=== PATIENT | female | born 1955 | race Caucasian/White ===

== ENCOUNTER → 2019-08-07 09:58 | Outpatient (BNVA) | payer MEDICARE, BC, SELFPAY | PROVIDERS: Family Provider Family Medicine; PCP Family Medicine; Referring Provider Family Medicine; Visit Provider Otolaryngology | DX: H93.91 Unspecified disorder of right ear (principal); H69.81 Other specified disorders of Eustachian tube, right ear; H65.21 Chronic serous otitis media, right ear; H90.11 Conductive hearing loss, unilateral, right ear, with unrestricted hearing on the contralateral side | CPT/HCPCS: 99214 ==

== ENCOUNTER 2019-08-29 06:21 | Day surgery (SDC) | payer MEDICARE, BC, SELFPAY ==
[2019-08-28 14:47] VITALS: BMI 31.8
[2019-08-29 06:37] VITALS: BP 120/68; PULSE 91; RESP 18; TEMP 36.6; O2SAT 97
[2019-08-29] MEDS: sodium chloride 0.9% 1,000 ML 30 ML IV (06:45)
--- NOTE | 2019-08-29 06:46 | W.PM.OPSUD ---
Surgery/Procedure H&P Update DATE OF PROCEDURE: August 29, 2019 DATE H&P PERFORMED: 08/07/19 H&P UPDATE INFORMATION: I have reviewed H&P completed within last 30 days and No changes to prior documentation PLANNED PROCEDURE: Operation Date: 08/29/19 07:50 Proposed Procedures p RIGHT MYRINGOTOMY REQUIRING TUBE INSERTION ([id number])H69.81(Right) - Anshul Dietz MD
--- NOTE | 2019-08-29 06:46 | PM.OP ---
Operative Report Date of procedure: August 29, 2019 Pre-op Diagnosis: Eustachian tube dysfunction Post-op diagnosis: same Procedure Done: Right myringotomy and tube, binocular microscope Pathology: none sent Anesthesia: General Condition: stable Disposition: PACU Brief History: Phill is a 64-year-old female with right eustachian tube dysfunction she is failed medical management and remains symptomatic. I discussed the goals risks and alternatives and informed consent was obtained. Procedure: The patient was taken to the operating room and under satisfactory general mask anesthesia the right ear was examined using the binocular microscope. Cerumen was removed from the external auditory canal. A radial incision was made in the anterior inferior quadrant of the right tympanic membrane and a #1 Paparella tube was placed. The patient was taken to the recovery room where they were observed. During the observation period postoperative care instructions and counseling including detailed written and verbal instructions given to the caregiver. Once the patient met discharge criteria and once all parties verbalized understanding of all instructions the patient was discharged in satisfactory and stable condition.
[2019-08-29 07:03] LABS: Glucose Point of Care 125 mg/dL (70-110)
--- NOTE | 2019-08-29 07:17 | ANES.PREANE2 ---
Pre-Anesthetic Assessment Pre-Anesthetic Assessment: Height/Weight: Height 1.57 m Weight 78.925 kg Temp Pulse Resp BP Pulse Ox 97.9 F 91 18 120/68 97 08/29/19 06:37 08/29/19 06:37 08/29/19 06:37 08/29/19 06:37 08/29/19 06:37 Preop Diagnosis: Chronic serous otitis media Proposed Procedure: Operation Date: 08/29/19 07:50 Proposed Procedures p RIGHT MYRINGOTOMY REQUIRING TUBE INSERTION ([id number])H69.81(Right) - Anshul Dietz MD Social: Social History: Tobacco (quit 1997) and No alcohol Exam: Pre-Anes Outpt Exam: alert, oriented x 3, clear to auscultation bilaterally and regular rate & rhythm Airway: Submandibular: WNL Cervical ROM: WNL MP: 2 History/ROS: No significant history except as noted Pulmonary: Pulmonary: Asthma and MOE CV/HEM: CV/HEM: Anemia : : None reported Hepatic: Hepatic: None reported GI: Comments: s/p fundal plication Musc/skel: Musc/skel: Fibromyalgia and OA/DJD Neuropsych: Neuropsych: Anxiety, Depression and Neuropathy (left arm) Anesthetic Plan: ASA status: 3 Anesthesia: Anesthesia Evaluation and General Risk of > 500 ml blood loss (7ml/kg in children): No PFSH Anesthesia PFSH: Medical History (Updated 08/29/19 @ 07:18 by Vimal Jason MD) Anemia Asthma Chronic serous otitis media Conductive hearing loss in right ear Depression Diabetes mellitus, type II Enrolled in chronic care management FH: cholecystectomy Fibromyalgia Gastroesophageal reflux MVP (mitral valve prolapse) Surgical History (Updated 08/29/19 @ 07:18 by Vimal Jason MD) H/O abdominal hysterectomy H/O shoulder surgery Status post laparoscopic Bessie fundoplication Social History Smoking and tobacco status: former smoker Quit status (tobacco): has quit using tobacco Year quit tobacco: 1997 Alcohol intake: current Alcohol intake frequency: few times a month Data Anesthesia Other Labs: Laboratory Results - last 48 hr 08/29/19 07:01 POC Glucose 125 Cardiac Studies: No Data to Display
[2019-08-29] MEDS: ofloxacin 0.3% otic 5 mL Btl 3 DROP EAR-RIGHT (07:33)
[2019-08-29 07:37] VITALS: BP 137/79; PULSE 79; RESP 18; TEMP 36.8; O2SAT 95
[2019-08-29 07:58] VITALS: BP 128/81; PULSE 94; RESP 18
== END 2019-08-29 08:08 | disposition home or self-care (01) ==
PROVIDERS: Family Provider Family Medicine; PCP Family Medicine; Visit Provider Otolaryngology
PROC: (CPT 69420; principal; 2019-08-29 07:50)
DX: H69.91 Unspecified Eustachian tube disorder, right ear (principal); Z87.891 Personal history of nicotine dependence; J45.909 Unspecified asthma, uncomplicated; M79.7 Fibromyalgia; M19.90 Unspecified osteoarthritis, unspecified site; E11.40 Type 2 diabetes mellitus with diabetic neuropathy, unspecified; K21.9 Gastro-esophageal reflux disease without esophagitis; Z79.84 Long term (current) use of oral hypoglycemic drugs; Z82.49 Family history of ischemic heart disease and other diseases of the circulatory system; Z83.3 Family history of diabetes mellitus
CPT/HCPCS: 69436; 12345; 36416; 82962; J2001; J2704; J7030

== ENCOUNTER → 2019-09-19 09:48 | Outpatient (BNVA) | payer MEDICARE, BC, SELFPAY | PROVIDERS: Family Provider Family Medicine; PCP Family Medicine; Visit Provider Otolaryngology | DX: H69.81 Other specified disorders of Eustachian tube, right ear (principal); H65.21 Chronic serous otitis media, right ear; H90.11 Conductive hearing loss, unilateral, right ear, with unrestricted hearing on the contralateral side | CPT/HCPCS: 99213; 99214 ==

== ENCOUNTER → 2019-10-03 10:04 | Outpatient (BNVA) | payer MEDICARE, BC, SELFPAY | PROVIDERS: Family Provider Family Medicine; PCP Family Medicine; Visit Provider Audiologist | DX: H90.11 Conductive hearing loss, unilateral, right ear, with unrestricted hearing on the contralateral side (principal) | CPT/HCPCS: 99213; 99214 ==

== ENCOUNTER → 2019-11-01 11:53 | Outpatient (BNVA) | payer MEDICARE, BC, SELFPAY | PROVIDERS: Family Provider Family Medicine; PCP Family Medicine; Visit Provider Family Medicine | DX: E11.9 Type 2 diabetes mellitus without complications (principal); E55.9 Vitamin D deficiency, unspecified; M79.7 Fibromyalgia; D50.8 Other iron deficiency anemias; D50.9 Iron deficiency anemia, unspecified | CPT/HCPCS: 80053; 80061; 82044; 82306; 82728; 83036; 83550; 85025 ==

== ENCOUNTER → 2020-05-15 08:17 | Outpatient (BNVA) | payer MEDICARE, BC, SELFPAY | PROVIDERS: Family Provider Family Medicine; PCP Family Medicine; Visit Provider Family Medicine | DX: E78.1 Pure hyperglyceridemia (principal); E11.9 Type 2 diabetes mellitus without complications; D50.8 Other iron deficiency anemias; D50.9 Iron deficiency anemia, unspecified; E55.9 Vitamin D deficiency, unspecified | CPT/HCPCS: 80053; 80061; 82043; 82306; 83036; 83540; 83550; 85025 ==

== ENCOUNTER → 2020-05-29 13:21 | Outpatient (BNVA) | payer MEDICARE, BC, SELFPAY | PROVIDERS: Family Provider Family Medicine; PCP Family Medicine; Visit Provider Family Medicine | DX: Z20.828 Contact with and (suspected) exposure to other viral communicable diseases (principal); F17.219 Nicotine dependence, cigarettes, with unspecified nicotine-induced disorders | CPT/HCPCS: 87635 ==

== ENCOUNTER 2020-06-15 14:56 | Outpatient (CLI) | payer MEDICARE, BC, SELFPAY ==
--- NOTE | 2020-06-15 15:02 | MR_ITS ---
WS: [id number] MRA ANGIOGRAPHY [place] HISTORY: OTALGIA RIGHT EAR;PULSATILE TINNITUS RIGHT EAR COMPARISON: None available. TECHNIQUE: 3-D MR angiography is performed of the [place]. All images are reviewed including source images. Distal vertebral and basilar arteries are intact with no significant stenosis or plaque. Posterior ce rebral arteries are normal course and caliber. Dominant LEFT posterior communicating artery. The RIGH T is hypoplastic or absent. Intracranial portion of the internal carotid arteries are normal course and caliber. No significant a therosclerosis, stenosis or aneurysm identified. Middle and anterior cerebral arteries are both paten t with no significant disease. Anterior communicating artery is also normal. MR/MR angio head wo con [id number] IMPRESSION: Normal MRA [place]. No [place] aneurysm.
--- NOTE | 2020-06-15 15:02 | MR_ITS ---
WS: [id number] MR VENOGRAPHY HEAD 3-D noncontrast imaging performed through the cerebral veins. All imaging is reviewed. HISTORY: OTALGIA RIGHT Ear; pulsatile TINNITUS RIGHT EAR COMPARISON: None available. Excellent demonstration of the dural venous sinuses and cerebral veins. There are no filling defects to suggest acute or chronic thrombus. No persistent filling defects. There are defects related to marleni w artifacts extending into the jugular veins. There is a prominent Pacchionian granulation over the s uperior sagittal sinus at the vertex which is normal. Flow artifact in the jugular veins. Superior sa gittal sinus, straight sinus and transverse sinuses are all patent with no significant thrombus. MR/[place] [id number] IMPRESSION: Normal MR venogram cerebral veins.
== END 2020-06-15 14:57 | disposition home or self-care (01) ==
LOC: RADSHAW 14:59
PROVIDERS: Family Provider Family Medicine; PCP Family Medicine; Visit Provider Specialist
DX: H92.01 Otalgia, right ear (principal); H93.A1 Pulsatile tinnitus, right ear
CPT/HCPCS: 70544

== ENCOUNTER → 2020-07-07 10:16 | Outpatient (BNVA) | payer MEDICARE, BC, SELFPAY | PROVIDERS: Family Provider Family Medicine; PCP Family Medicine; Visit Provider Nurse Practitioner Family | DX: M25.562 Pain in left knee (principal) | CPT/HCPCS: 73562 ==

== ENCOUNTER 2020-07-22 14:50 | Outpatient (CLI) | payer MEDICARE, BC, SELFPAY ==
--- NOTE | 2020-07-22 15:15 | MR_ITS ---
WS: [id number] MRI LEFT KNEE NONCONTRAST TECHNIQUE: Axial PD, coronal PD fat sat, coronal PD, sagittal PD, and sagittal PD fat-sat images obta ined. CLINICAL INFORMATION: left knee pain COMPARISON: None. FINDINGS: Distal quadriceps and patella tendons are intact. Normal ACL and PCL. Normal medial and lateral menis cus. No acute appearing meniscal tears. Chronic intrasubstance signal abnormality involving the media l and lateral meniscus. Mild chondromalacia patella. Normal medial and lateral patellar retinaculum. Normal popliteal fossa. Moderate joint space narrowing involving the medial and lateral joint compartments with chondromalaci a. Subcutaneous edema involving the lateral subcutaneous soft tissues. Medial and lateral collateral ligaments appear intact. Normal bone marrow signal in the distal femoral condyles and tibial plateau. MR/MR knee LT wo con* [id number] IMPRESSION: 1. Normal anterior and posterior cruciate ligaments. 2. No acute appearing meniscal tears. 3. Subcutaneous edema involving the lateral knee soft tissues consistent with contusion. Medial and lateral collateral ligaments appear intact. 4. Moderate degenerative narrowing involving the medial and lateral joint comp artments with chondromalacia. 5. Mild chondromalacia patella.
== END 2020-07-22 14:51 | disposition home or self-care (01) ==
LOC: RADSHAW 14:56
PROVIDERS: Family Provider Family Medicine; PCP Family Medicine; Visit Provider Family Medicine
DX: M22.42 Chondromalacia patellae, left knee (principal); R60.0 Localized edema
CPT/HCPCS: 73721

== ENCOUNTER 2020-07-28 08:28 | Outpatient (CLI) | payer MEDICARE, BC, SELFPAY ==
--- NOTE | 2020-07-28 08:33 | USCV_ITS ---
Phill Reina Age: 65 Gender: F : 1955 Exam Date: 07/28/2020 08:59 Ordering Phys: Patricio Vogt MD Technologist: Slick Samaniego Exam Location: [facility] [place]_ Indication: PULSATILE TENNITUS RT EAR Risk Factors: Previous Vascular Surgery: Right Brachial BP: / Left Brachial BP: / Right Left Velocity (cm/s) Spectral Plaque Velocity (cm/s) Spectral Plaque Syst/Diast Broadening Syst/Diast Broadening 83.10/ 13.20 Prox CCA 121.30/ 26.50 80.80/ 19.40 Mid CCA 99.20 / 34.20 83.10/ 22.50 Distal CCA 106.90/ 26.50 79.40/ 18.70 Prox ICA 87.20 / 20.70 94.80/ 27.30 Mid ICA 89.90 / 31.50 93.10/ 35.00 Distal ICA 113.20/ 35.90 111.40 ECA 164.30 1.17 ICA/CCA 1.14 Antegrade Vertebral Antegrade 55.50/ 17.10 cm/s 55.20/ 16.30 cm/s Tri Subclavian Tri 91.40 92.70 FINDINGS Comparison: none available. No significant elevation of systolic or diastolic velocities. Waveforms are normal. No significant amount of calcified plaque or intimal thickening identified. CONCLUSIONS Normal carotid doppler ultrasound. Dr. Katherine Correa DO (Electronically Signed) Final Date: 28 July 2020 09:18 S
== END 2020-07-28 08:29 | disposition home or self-care (01) ==
LOC: US 08:30
PROVIDERS: PCP Family Medicine; Visit Provider Specialist
DX: H93.A1 Pulsatile tinnitus, right ear (principal)
CPT/HCPCS: 93880

== ENCOUNTER → 2020-11-04 15:21 | Outpatient (BNVA) | payer MEDICARE, BC, SELFPAY | PROVIDERS: PCP Family Medicine; Visit Provider Specialist | DX: M25.562 Pain in left knee (principal) | CPT/HCPCS: 73560; 73565 ==

== ENCOUNTER 2020-11-09 06:00 | Outpatient (RCR) | payer MEDICARE, BC, SELFPAY | END 2020-12-07 23:59 | disposition home or self-care (01) | LOC: MPT 06:00 | PROVIDERS: PCP Family Medicine; Referring Provider Specialist; Visit Provider Specialist | DX: M25.562 Pain in left knee (principal) | CPT/HCPCS: 97110; 97161 ==

== ENCOUNTER → 2020-11-12 08:12 | Outpatient (BNVA) | payer MEDICARE, BC, SELFPAY | PROVIDERS: PCP Family Medicine; Visit Provider Family Medicine | DX: D50.8 Other iron deficiency anemias (principal); E11.9 Type 2 diabetes mellitus without complications; E78.1 Pure hyperglyceridemia; D50.9 Iron deficiency anemia, unspecified; F17.219 Nicotine dependence, cigarettes, with unspecified nicotine-induced disorders | CPT/HCPCS: 80053; 80061; 82728; 83036; 83550; 85025 ==

== ENCOUNTER 2021-05-13 14:27 | Outpatient (CLI) | payer MEDICARE, BC, SELFPAY ==
--- NOTE | 2021-05-13 14:43 | XR_ITS ---
WS: [id number] LEFT HIP HISTORY: left hip pain COMPARISON: None available. LEFT hip: No acute fracture or dislocation. No soft tissue abnormality. XR/XR hip LT 2-3V wo/w pel* [id number] IMPRESSION: 1. No hip fracture. 2. Normal LEFT hip.
--- NOTE | 2021-05-13 14:43 | XR_ITS ---
WS: [id number] LUMBAR SPINE: 3 VIEWS TECHNIQUE: AP, lateral and L5-S1 spot. HISTORY: chronic low back pain COMPARISON: 03/20/2017 L4 anterolisthesis by 4 mm. No fractures. Pedicles are all identified. Mild facet joint arthritis at L4-5 and L5-S1. SI joints are symmetric bilaterally. No soft tissue abnormalities. Prior cholecystectomy. Scattered plaque within the visualized aorta. XR/XR lumbar spine 2-3V* [id number] IMPRESSION: 1. Mild facet joint arthritis L4-5 and L5-S1 has mildly progressed since 2016. 2. No fractures. 3. L4 anterolisthesis by 4 mm is new.
== END 2021-05-13 14:28 | disposition home or self-care (01) ==
PROVIDERS: PCP Family Medicine; Visit Provider Family Medicine
DX: M25.552 Pain in left hip (principal); M47.816 Spondylosis without myelopathy or radiculopathy, lumbar region; M47.817 Spondylosis without myelopathy or radiculopathy, lumbosacral region
CPT/HCPCS: 72100; 73502; 80053; 82043; 83036

== ENCOUNTER 2021-09-23 13:16 | Emergency (ER) | payer MEDICARE, BC, SELFPAY ==
[2021-09-23 13:33] VITALS: BP 111/60; PULSE 93; RESP 16; TEMP 36.8; O2SAT 97; BMI 32.5
--- NOTE | 2021-09-23 13:47 | XR_ITS ---
WS: [id number] XR chest 1V portable [id number] REASON FOR EXAM: cp FINDINGS: Chest is unchanged compared to previous examination of 12/24/2018. Mild tortuosity the thoracic aorta without aneurysmal dilatation. Normal heart size. Calcified granulomatous disease in both hemithoraces. No lung nodule or lung mass. No acute pulmonary parenchymal or pleural abnormality. No significant abnormality of the bony thorax. XR/XR chest 1V portable [id number] IMPRESSION: No acute chest abnormality.
--- NOTE | 2021-09-23 13:47 | ECG_ITS ---
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 Measurements Intervals [place] Rate: 90 P: 67 GA: 138 QRS: -17 QRSD: 92 T: 69 QT: 353 QTc: 433 Interpretive Statements SINUS RHYTHM Compared to ECG 12/02/2018 15:21:25 Incomplete right bundle-branch block no longer present Electronically Signed On 09-23-2021 21:49:19 CDT by Julianna Perez M.D. [id number]
[2021-09-23 13:56] LABS: Basophils # 0.1 10^3/uL (0.0-0.1); Basophils % 1.5 %; Eosinophils # 0.1 10^3/uL (0.0-0.8); Eosinophils % 2.4 %; Hematocrit 42.6 % (37.0-47.0); Hemoglobin 13.6 g/dL (11.5-15.3); Lymphocytes # 1.6 10^3/uL (0.8-4.8); Lymphocytes % 29.9 %; Mean Corpuscular HGB Conc 31.9 g/dL (30.0-36.0); Mean Corpuscular Volume 93.8 fl (81-99); Mean Platelet Volume 9.7 fL (7.4-10.4); Monocytes # 0.2 10^3/uL (0.2-0.9); Monocytes % 4.1 %; Neutrophils # 3.34 10^3/uL (1.8-7.7); Neutrophils % 61.9 %; Nucleated Red Blood Cells % 0 %; Platelet Count 290 10^3/cmm (130-400); Red Blood Count 4.54 10^6/uL (4.1-5.3); Red Cell Distribution Width 14.1 % (12.1-15.1); White Blood Count 5.4 10^3/uL (4.0-10.0)
[2021-09-23 14:08] LABS: Troponin(5th) Baseline 6 ng/L (0-10)
[2021-09-23 14:09] LABS: Alanine Aminotransferase 17 U/L (0-33); Albumin Level 4.3 g/dL (3.5-5.2); Alkaline Phosphatase 144 IU/L (35-105); Anion Gap 17.9 (5-19); Aspartate Amino Transferase 21 U/L (0-32); Blood Urea Nitrogen 9 mg/dL (8-23); Calcium 10.2 mg/dL (8.5-10.5); Carbon Dioxide 27 mmol/L (22-29); Chloride 102 mmol/L (98-107); Globulin 3.3 g/dL (1.3-4.6); Glucose 103 mg/dL (65-115); Osmolality Calculated 295 mOsm/kg (285-295); Potassium 3.9 mmol/L (3.5-5.1); Sodium 143 mmol/L (136-145); Total Bilirubin 0.2 mg/dL (0.15-1.2); Total Protein 7.6 g/dL (6.6-8.7)
--- NOTE | 2021-09-23 15:47 | ECG_ITS ---
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 Measurements Intervals [place] Rate: 72 P: 66 NE: 142 QRS: -8 QRSD: 97 T: 58 QT: 387 QTc: 425 Interpretive Statements SINUS RHYTHM Compared to ECG 09/23/2021 13:35:42 No significant changes Electronically Signed On 09-23-2021 22:08:00 CDT by Julianna Perez M.D. [id number]
[2021-09-23 15:51] VITALS: BP 137/57; PULSE 85; RESP 21; O2SAT 96
--- NOTE | 2021-09-23 17:18 | W.ED.CHESTPA ---
HPI - Chest Pain General: Chief Complaint: Chest Pain Stated Complaint: chest pain Time Seen by Provider: 09/23/21 15:45 History of Present Illness: 66-year-old female presents emergency department chief complaint of having episode of chest pressure followed by a sharp change in the midsternal region with no radiation she reports no prior history of heart attack 25 years ago unknown reasons reports no cardiac stenting or work-up since. Patient reports she was cleaning up her lunch dishes when this had occurred reports she had to sit down for it to pass reports she felt somewhat weak after the event she reports she was having no respiratory difficulties or difficulty with breathing shortness of breath or palpitations during or thereafter. Patient presented to the ER for further assessment and management she reported upon arrival to ER her symptoms had stopped. Associated symptoms: Deny abdominal pain, dyspnea, fever(s), nausea, palpitations or vomiting Review of Systems General: Reports: 10 or more systems reviewed and unremarkable except in HPI and below Const: Denies: fever(s), chills, fatigue or malaise Eyes: Denies: change in vision or blurry vision Card: Reports: chest pain; Denies: palpitations Resp: Denies: dyspnea or productive cough GI: Denies: abdominal pain, nausea or vomiting : Denies: flank pain Musc: Denies: extremity pain or extremity swelling Skin/Breast: Denies: rash or pruritus Neuro: Denies: headache(s) Psych: Denies: anxiety or depression Jasiel/Lymph: Denies: easy bleeding All/Imm: Denies: urticaria, throat swelling or facial swelling [facility] ED PFSH: Medical History Anemia Asthma Chronic serous otitis media Conductive hearing loss in right ear COVID-19 Depression Fibromyalgia Gastroesophageal reflux MVP (mitral valve prolapse) Type 2 diabetes mellitus, without long-term current use of insulin Surgical History H/O abdominal hysterectomy H/O cataract extraction H/O shoulder surgery Status post laparoscopic Bessie fundoplication Family History Other Diabetes Glaucoma Heart disease Social History Smoking and tobacco status: current every day smoker cigarettes Packs smoked per day: 0.50 Alcohol intake: current Alcohol intake frequency: few times a month Female Reproductive History: Para: 3 Spontaneous abortions: No Physical Exam Const: COMMON NORMALS: no acute distress, patient oriented x3 and healthy appearing HENMT: COMMON NORMALS: normocephalic and atraumatic HEAD & SCALP: normocephalic and atraumatic Eye: COMMON NORMALS: Equal, round and reactive pupils present and EOMs intact bilaterally PUPIL: Yes Equal, round and reactive pupils present Neck/C-Spine: COMMON NORMALS: full ROM, supple and no JVD Lymph: LYMPHATIC: no lymphadenopathy noted Chest: COMMONS NORMALS: normal inspection of the chest Resp: COMMON NORMALS: normal respiratory effort, No retractions and clear to auscultation bilaterally EFFORT & INSPECTION: Yes able to speak in complete sentences and Yes symmetric chest movement AUSCULTATION: clear to auscultation bilaterally Cardio: COMMON NORMALS: no JVD, regular rate and regular rhythm RATE: regular rate RHYTHM: regular rhythm GI: COMMON NORMALS: Normal to inspection, nondistended, normoactive bowel sounds present, Soft to palpation and non-tender INSPECTION: Yes normal to inspection PALPATION: Yes Soft to palpation : COMMON NORMALS: Yes no CVA tenderness BLADDER/KIDNEY EXAM: Yes no CVA tenderness Back/Pelvis: COMMON NORMALS: no CVA tenderness Extremity: COMMON NORMALS: normal to inspection and full ROM Neuro: COMMON NORMALS: patient oriented x3, CN's II-XII intact bilaterally, moves all extremities and no focal motor deficits Psych: COMMON NORMALS: mental status grossly normal, Normal thought process present, cooperative and normal affect THOUGHT PROCESS: Normal thought process present Skin: COMMON NORMALS: no rashes or lesions noted GENERAL SKIN EXAM: no rashes or lesions noted Course ED course: Due to the patient's symptoms and condition lab work and imaging will be obtained we will continue to follow. First cardiac troponin is negative we will continue to follow for the further enzymes Vital Signs: Vital signs: Vital Signs Temperature 98.3 F 09/23/21 13:33 Pulse Rate 74 09/23/21 17:37 Respiratory Rate 20 H 09/23/21 17:37 Blood Pressure 137/57 09/23/21 17:37 Pulse Oximetry 97 09/23/21 17:37 MDM - Chest Pain Medical Decision Making Due to the patient's symptoms and condition lab work and imaging will be obtained we will continue to follow. Patient is to second a cardiac troponins of come back unremarkable EKG does not reveal any obvious ischemic change patient was advised further follow-up with primary care in 2 to 3 days to be set up for a stress echocardiogram which was advised to be kept on baby aspirin daily which to return immediately if any your symptoms return or worse. Lab Data : 09/23/21 13:42 09/23/21 13:42 Radiology Impressions Chest X-Ray 09/23/21 13:47 IMPRESSION: No acute chest abnormality. Laboratory Results WBC 5.4 10^3/uL (4.0-10.0) 09/23/21 13:42 RBC 4.54 10^6/uL (4.1-5.3) 09/23/21 13:42 Hgb 13.6 g/dL (11.5-15.3) 09/23/21 13:42 Hct 42.6 % (37.0-47.0) 09/23/21 13:42 MCV 93.8 fl (81-99) 09/23/21 13:42 MCH 30.0 pg (28.0-34.0) 09/23/21 13:42 MCHC 31.9 g/dL (30.0-36.0) 09/23/21 13:42 RDW 14.1 % (12.1-15.1) 09/23/21 13:42 Plt Count 290 10^3/cmm (130-400) 09/23/21 13:42 MPV 9.7 fL (7.4-10.4) 09/23/21 13:42 Neut % (Auto) 61.9 % 09/23/21 13:42 Lymph % (Auto) 29.9 % 09/23/21 13:42 Lewis % (Auto) 4.1 % 09/23/21 13:42 Eos % (Auto) 2.4 % 09/23/21 13:42 Baso % (Auto) 1.5 % 09/23/21 13:42 Neut # (Auto) 3.34 10^3/uL (1.8-7.7) 09/23/21 13:42 Lymph # (Auto) 1.6 10^3/uL (0.8-4.8) 09/23/21 13:42 Lewis # (Auto) 0.2 10^3/uL (0.2-0.9) 09/23/21 13:42 Eos # (Auto) 0.1 10^3/uL (0.0-0.8) 09/23/21 13:42 Baso # (Auto) 0.1 10^3/uL (0.0-0.1) 09/23/21 13:42 Nucleated RBC % (auto) 0 % 09/23/21 13:42 Nucleated RBCs # 0.0 /100WBC 09/23/21 13:42 Sodium 143 mmol/L (136-145) 09/23/21 13:42 Potassium 3.9 mmol/L (3.5-5.1) 09/23/21 13:42 Chloride 102 mmol/L (98-107) 09/23/21 13:42 Carbon Dioxide 27 mmol/L (22-29) 09/23/21 13:42 Anion Gap 17.9 (5-19) 09/23/21 13:42 BUN 9 mg/dL (8-23) 09/23/21 13:42 Creatinine 0.6 mg/dL (0.5-0.9) 09/23/21 13:42 GFR Calculation 100.0 mL/min (90-130) 09/23/21 13:42 Glucose 103 mg/dL (65-115) 09/23/21 13:42 Calculated Osmolality 295 mOsm/kg (285-295) 09/23/21 13:42 Calcium 10.2 mg/dL (8.5-10.5) 09/23/21 13:42 Total Bilirubin 0.2 mg/dL (0.15-1.2) 09/23/21 13:42 AST 21 U/L (0-32) 09/23/21 13:42 ALT 17 U/L (0-33) 09/23/21 13:42 Alkaline Phosphatase 144 IU/L (35-105) H 09/23/21 13:42 Troponin T Baseline 6 ng/L (0-10) 09/23/21 13:42 Troponin T 120 Minute 6.00 ng/L (0-10) 09/23/21 15:32 Delta Troponin T 0 ABS# (0-10) 09/23/21 15:32 Total Protein 7.6 g/dL (6.6-8.7) 09/23/21 13:42 Albumin 4.3 g/dL (3.5-5.2) 09/23/21 13:42 Globulin 3.3 g/dL (1.3-4.6) 09/23/21 13:42 Discharge Plan Discharge Patient Disposition: Home Clinical Impression: Chest pain of uncertain etiology Condition: Stable Prescriptions: No Action aspirin [Adult Aspirin Regimen] 81 mg tablet,delayed release (DR/EC) 81 mg PO QDAY 0RF vitamin E 200 unit capsule 400 unit PO QDAY 0RF ascorbate calcium (vitamin C) 500 mg tablet 500 mg PO QDAY 0RF loratadine [Claritin] 10 mg tablet 10 mg PO QDAY 0RF sweet stone CBD & THC PO 0RF cholecalciferol (vitamin D3) 10 mcg (400 unit) capsule 10 mcg PO DAILY 0RF cyclobenzaprine 10 mg tablet 10 mg PO TID Qty: 270 0RF meloxicam [Mobic] 15 mg tablet 15 mg PO DAILY Qty: 90 0RF metformin 500 mg tablet 500 mg PO DAILY Qty: 90 0RF citalopram [Celexa] 20 mg tablet 20 mg PO QDAY Qty: 90 1RF montelukast [Singulair] 10 mg tablet 10 mg PO QDAY Qty: 90 1RF gabapentin 300 mg capsule 300 mg PO TID Qty: 270 1RF Iron (ferrous sulfate) 325 mg (65 mg iron) Tablet 325 mg PO DAILY 0RF Discharge Orders: Discharge ED (Routine); Ordered 09/23/21 Ordered By: Jacob Espinal Referrals: Neelima Ernst [Primary Care Provider] - 1-3 days (For referral for a stress test of your heart) Discharge Diet: Cardiac Patient Instructions: Angina (ED), Chest Pain (ED) Activity Restrictions/Additional Instructions: Please follow-up with your primary care doctor in 1 to 2 days for referral for a stress test. If this chest pain comes back on again it is advisable for you to take 4 baby aspirin chew them often go immediately to the ER for further assessment and management. At this time there is concern this may be of cardiac etiology despite your lab work and imaging is come back unremarkable you will require additional work-up to further discover what this issue is. Return in the interim if any of her symptoms persist or worse Coding Level of Care Code ED Registered Nurse Practitioner for Heather [facility] Exam Comprehensive
[2021-09-23 17:19] VITALS: BP 137/67; PULSE 79; RESP 19; O2SAT 97
[2021-09-23 17:26] LABS: Troponin 5 2HR Delta 0 ABS# (0-10)
[2021-09-23 17:37] VITALS: BP 137/57; PULSE 74; RESP 20; O2SAT 97
[2021-09-23 18:07] VITALS: BP 150/67; PULSE 70; RESP 20; O2SAT 97
== END 2021-09-23 18:05 | disposition home or self-care (01) ==
PROVIDERS: Nurse Practitioner Family; Emergency Provider Emergency Medicine; PCP Nurse Practitioner Family
DX: R07.9 Chest pain, unspecified (principal); Z79.82 Long term (current) use of aspirin; Z79.84 Long term (current) use of oral hypoglycemic drugs; E11.9 Type 2 diabetes mellitus without complications; F17.210 Nicotine dependence, cigarettes, uncomplicated
CPT/HCPCS: 71045; 80053; 84484; 85025; 93005; 99283

== ENCOUNTER → 2022-08-17 10:02 | Outpatient (BNVA) | payer MEDICARE, BC, SELFPAY | PROVIDERS: PCP Nurse Practitioner Family; Visit Provider Internal Medicine Cardiovascular Disease | DX: R00.0 Tachycardia, unspecified (principal); E78.1 Pure hyperglyceridemia; I34.1 Nonrheumatic mitral (valve) prolapse; R07.9 Chest pain, unspecified; F17.219 Nicotine dependence, cigarettes, with unspecified nicotine-induced disorders; E11.9 Type 2 diabetes mellitus without complications; Z79.4 Long term (current) use of insulin; M54.50 Low back pain, unspecified; G89.29 Other chronic pain; K21.9 Gastro-esophageal reflux disease without esophagitis | CPT/HCPCS: 93005; 99204; Q3014 ==

== ENCOUNTER 2023-05-29 12:47 | Outpatient (CLI) | payer MEDICARE, BC, SELFPAY ==
[2023-05-29 13:28] LABS: Basophils # 0.1 10^3/uL (0.0-0.1); Basophils % 1.2 %; Eosinophils # 0.1 10^3/uL (0.0-0.8); Eosinophils % 2.1 %; Hematocrit 41.4 % (36-47); Lymphocytes # 1.2 10^3/uL (0.8-4.8); Lymphocytes % 23.2 %; Mean Corpuscular HGB Conc 32.4 g/dL (30-55); Mean Corpuscular Hemoglobin 30.9 pg (27-33); Mean Corpuscular Volume 95.4 fl (85-98); Mean Platelet Volume 9.4 fL (7.4-10.4); Monocytes # 0.3 10^3/uL (0.2-0.9); Neutrophils # 3.53 10^3/uL (1.8-7.7); Neutrophils % 68.3 %; Platelet Count 268 10^3/cmm (157-399); Red Blood Count 4.34 10^6/uL (3.85-5.65); Red Cell Distribution Width 14.4 % (12.1-15.1); White Blood Count 5.17 10^3/uL (3.29-11.43)
[2023-05-29 13:29] LABS: Nucleated Red Blood Cells % 0 %
--- NOTE | 2023-05-29 13:30 | XR_ITS ---
WS: [id number] SCREENING DEXA SCAN [employer] CLINICAL INFORMATION: M81.0 - Age-related osteoporosis without current patholog... COMPARISON: 2018 FINDINGS: The L1-L4 bone mineral density measures 1.048 g/cm2. This corresponds to a T score score of -1.1 and Z score of 0.0. Left femoral neck bone mineral density measures 1.011 g/cm2. This corresponds to a T score of 0.0 and Z score of 1.0. Right femoral neck bone mineral density measures 1.007 g/cm2. This corresponds to a T score 0.0of and Z score of 1.0. Mean femoral neck bone mineral density measures 1.009 g/cm2. This corresponds to a T score of 0.0 and Z score of 1.0. IMPRESSION: Osteopenia lumbar spine. Normal bone mineralization femoral necks. Patient's FRAX calculated 10 year probability for major osteoporotic fracture is 21.0% and osteoporot ic hip fracture is 5.3%. Bone mineral density lumbar spine decrease -8.9% Bone mineral density femoral necks decreased -6.0%
[2023-05-29 15:37] LABS: Hepatitis B Core AB, Total Non-Reactive (Nonreactive); Hepatitis B Surface Antigen Non-Reactive (Nonreactive); Hepatitis C Virus Antibody Non-Reactive (Nonreactive)
[2023-05-29 16:51] LABS: 25 Hydroxy Vitamin D 34 ng/mL (30-100); Alanine Aminotransferase 36 U/L (0-33); Albumin Level 4.2 g/dL (3.5-5.2); Alkaline Phosphatase 138 U/L (35-105); Aspartate Amino Transferase 62 U/L (0-32); Ferritin 113 ng/mL (15-150); Globulin 3.4 g/dL (1.3-4.6); Glomerular Filtration Rate 83.2 mL/min (90-130); Total Bilirubin 0.3 mg/dL (0.15-1.2); Total Protein 7.6 g/dL (6.6-8.7)
[2023-05-30 15:49] LABS: Cyclic Citrullinated Peptide <16 UNITS
[2023-05-30 20:24] LABS: HLA-B27 NEGATIVE (NEGATIVE)
[2023-05-31 13:55] LABS: Quantiferon Mitogen >10.00 IU/mL; Quantiferon Nil 0.01 IU/mL; Quantiferon Plus TB1 0.01 IU/mL; Quantiferon Plus TB2 0.01 IU/mL; Quantiferon TB Gold NEGATIVE (NEGATIVE)
== END 2023-05-29 12:48 | disposition home or self-care (01) ==
PROVIDERS: PCP Nurse Practitioner Family; Visit Provider Internal Medicine Rheumatology
DX: Z13.820 Encounter for screening for osteoporosis (principal); M81.0 Age-related osteoporosis without current pathological fracture; M85.88 Other specified disorders of bone density and structure, other site; Z11.59 Encounter for screening for other viral diseases; Z11.1 Encounter for screening for respiratory tuberculosis; M19.90 Unspecified osteoarthritis, unspecified site; Z79.899 Other long term (current) drug therapy; M45.6 Ankylosing spondylitis lumbar region; E11.9 Type 2 diabetes mellitus without complications
CPT/HCPCS: 36415; 77080; 80076; 82306; 82565; 82728; 85025; 86200; 86431; 86480; 86704; 86803; 86812; 87340

== ENCOUNTER 2024-12-06 09:59 | Outpatient (CLI) | payer MEDICARE, BC, SELFPAY ==
[2024-12-06 10:35] LABS: Basophils % 0.9 %; Eosinophils # 0.1 10^3/uL (0.0-0.8); Eosinophils % 2.1 %; Hematocrit 38.1 % (36-47); Lymphocytes % 22.6 %; Mean Corpuscular HGB Conc 32.5 g/dL (30-55); Mean Corpuscular Hemoglobin 31.8 pg (27-33); Mean Corpuscular Volume 97.7 fl (85-98); Mean Platelet Volume 9.5 fL (7.4-10.4); Monocytes # 0.3 10^3/uL (0.2-0.9); Monocytes % 5.7 %; Neutrophils # 3.01 10^3/uL (1.8-7.7); Neutrophils % 68.5 %; Nucleated Red Blood Cells % 0 %; Platelet Count 217 10^3/cmm (157-399); Red Cell Distribution Width 14.1 % (12.1-15.1); White Blood Count 4.39 10^3/uL (3.29-11.43)
[2024-12-06 10:38] LABS: Erythrocyte Sedimentation Rate 40 mm/hr (0-15)
[2024-12-06 10:58] LABS: Alanine Aminotransferase 24 U/L (0-33); Albumin Level 3.7 g/dL (3.5-5.2); Alkaline Phosphatase 114 U/L (35-105); Aspartate Amino Transferase 40 U/L (0-32); C Reactive Protein 22.1 mg/L (0.0-4.9); Globulin 3.4 g/dL (1.3-4.6); Total Bilirubin 0.2 mg/dL (0.15-1.2); Total Protein 7.1 g/dL (6.6-8.7)
[2024-12-06 12:20] LABS: Hepatitis B Core AB, Total Non-Reactive (Nonreactive); Hepatitis B Surface Antigen Non-Reactive (Nonreactive)
[2024-12-06 12:41] LABS: Hepatitis C Virus Antibody Non-Reactive (Nonreactive)
== END 2024-12-06 10:00 | disposition home or self-care (01) ==
LOC: LAB 10:03
PROVIDERS: PCP Nurse Practitioner Family; Visit Provider Internal Medicine Rheumatology
DX: Z79.899 Other long term (current) drug therapy (principal)
CPT/HCPCS: 36415; 80076; 82565; 85025; 85651; 86140; 86480; 86704; 86803; 87340

== ENCOUNTER → 2025-03-27 13:15 | Outpatient (BNVA) | payer MEDICARE, BC, SELFPAY | PROVIDERS: PCP Nurse Practitioner Family; Visit Provider Internal Medicine Rheumatology | DX: M47.816 Spondylosis without myelopathy or radiculopathy, lumbar region (principal); Z79.899 Other long term (current) drug therapy; M06.041 Rheumatoid arthritis without rheumatoid factor, right hand; M06.042 Rheumatoid arthritis without rheumatoid factor, left hand; Z71.85 Encounter for immunization safety counseling; K74.60 Unspecified cirrhosis of liver | CPT/HCPCS: 36415; 80076; 82306; 82565; 85025; 85651; 86140; 99214 ==